=== PATIENT | female | born 1980 | race Caucasian/White ===

== ENCOUNTER 2017-07-31 22:27 | Emergency (ER) | payer MEDICAID ==
[~2017-07-31] VITALS: Ht 167.6 cm; Wt 88.2 kg
[2017-07-31] MEDS ORDERED: MELO-107 PO (22:37)
[2017-07-31] MEDS ORDERED: [UNRECOGNIZED DRUG - OTHER] PO (22:37)
[2017-08-01] MEDS ORDERED: CYCLOBENZAPRINE HCL 10 MG TABLET PO ONE (04:15)
[2017-08-01 04:28] VITALS: BP 124/62
== END 2017-08-01 04:37 | disposition home or self-care (01) ==
LOC: EMS 22:30
DX: M54.2 Cervicalgia (principal); M54.6 Pain in thoracic spine; M79.1 Myalgia
CPT/HCPCS: 99283